=== PATIENT | male | born 1970 | race African-American/Black ===

== ENCOUNTER 2018-06-09 10:16 | Inpatient (IN) | payer BC ==
[2018-06-09] VITALS (7 sets, daily range): BP systolic 142–174; BP diastolic 83–108
[~2018-06-09] VITALS: Ht 167.6 cm; Wt 118.8 kg
--- NOTE | ~2018-06-09 | EKG ---
[place], [place] ELECTROCARDIOGRAM REPORT NAME: RICO PINO UNIT #: [id number] ROOM: 406 DOCTOR: VALERIA DRAFT REPORT BIRTHDATE: [birth year] [facility] Test Date: 2018-06-09 Test Time: 15:13:57 Pat Name: RICO PINO Department: Room: 406 1 Gender: M Rehab Technician: Josephine Desai : 1970 Requested By: MARISEL XIAO Order Number: [id number] Reading MD: Louie Alejandra MD Measurements Intervals [place] Rate: 79 P: 46 TX: 150 QRS: 44 QRSD: 106 T: 127 QT: 418 QTc: 480 Interpretive Statements Sinus rhythm Probable left atrial enlargement Abnormal R-wave progression, late transition LVH with secondary repolarization abnormality Anterior ST elevation, probably due to LVH No change from earlier ECG this date. Electronically Signed On 06-09-2018 18:49:14 PDT by Louie Alejandra MD CM:EKGRPT:ELECTROCARDIOGRAM REPORT [id number] [id number] MARISEL SHAW DRAFT REPORT MARISEL XIAO
--- NOTE | ~2018-06-09 | EKG ---
[place], [place] ELECTROCARDIOGRAM REPORT NAME: RICO PINO UNIT #: [id number] ROOM: 406 DOCTOR: VALERIA DRAFT REPORT BIRTHDATE: [birth year] [facility] Test Date: 2018-06-09 Test Time: 12:39:30 Pat Name: RICO PINO Department: Room: 406 Gender: M Iso Coordinator: Josephine Desai : 1970 Requested By: ANYI CUNHA Order Number: [id number] Reading MD: Louie Alejandra MD Measurements Intervals [place] Rate: 82 P: 49 TN: 148 QRS: 60 QRSD: 99 T: 85 QT: 376 QTc: 440 Interpretive Statements Sinus rhythm Probable left atrial enlargement Left ventricular hypertrophy Nonspecific T abnormalities, lateral leads No previous ECG available for comparison Electronically Signed On 06-09-2018 12:39:44 PDT by Louie Alejandra MD CM:EKGRPT:ELECTROCARDIOGRAM REPORT [id number] ANYI CUNHA EPIPHANY DRAFT REPORT ANIY CUNHA
--- NOTE | ~2018-06-09 | EKG ---
[place], [place] ELECTROCARDIOGRAM REPORT NAME: RICO PINO UNIT #: [id number] ROOM: 406 DOCTOR: EPIPHANY DRAFT REPORT BIRTHDATE: [birth year] [facility] Test Date: 2018-06-09 Test Time: 18:42:03 Pat Name: RICO PINO Department: 4E Room: 406 1 Gender: M Radio Repairer: Louie Trevino : 1970 Requested By: MARISEL XIAO Order Number: [id number] Reading MD: Louie Alejandra MD Measurements Intervals [place] Rate: 79 P: 46 ID: [id number] QRS: 53 QRSD: 102 T: 92 QT: 416 QTc: 477 Interpretive Statements Sinus rhythm Probable left atrial enlargement Left ventricular hypertrophy Nonspecific T abnormalities, lateral leads Compared to ECG 06/09/2018 12:39:30 No significant change Electronically Signed On 06-09-2018 18:50:23 PDT by Louie Alejandra MD CM:EKGRPT:ELECTROCARDIOGRAM REPORT [id number] 1850 MARISEL XIAO EPIPHANY DRAFT REPORT MARISEL XIAO
[2018-06-09 11:26] LABS: BILIRUBIN NEGATIVE (NEGATIVE); BLOOD TRACE-LYSED (NEGATIVE); CLARITY CLEAR (CLEAR); COLOR YELLOW (YELLOW); GLUCOSE NEGATIVE (NEGATIVE); KETONE NEGATIVE (NEGATIVE); LEUKO ESTERASE NEGATIVE (NEGATIVE); NITRITE NEGATIVE (NEGATIVE); SPECIFIC GRAVITY <= 1.005 (1.005-1.030); UROBILINOGEN 0.2 E.U./dl (0.2-1.0)
[2018-06-09 11:33] LABS: BASO % 0.3 % (0.0-1.0); EOS # 0.3 10*3/uL (0.0-0.4); EOS % 3.6 % (1.0-4.0); HEMOGLOBIN 14.6 g/dl (14.0-18.0); LYMPH # 1.4 10*3/uL (1.3-4.4); LYMPH % 19.1 % (27.0-41.0); MEAN CELL VOLUME 88.6 fl (80.0-94.0); MEAN CORPUSCULAR HGB 30.8 pg (27.0-31.0); MEAN CORPUSCULAR HGB CONC 34.8 g/dl (33.0-37.0); MEAN PLATELET VOLUME 10.5 fl (9.6-12.3); MONO # 0.7 10*3/uL (0.1-1.0); MONO % 9.4 % (3.0-9.0); NEUT # 4.8 10*3/uL (2.3-7.9); NEUT % 67.3 % (47.0-73.0); PLATELET COUNT AUTOMATED 165 10*3/uL (130-400); RED BLOOD COUNT 4.74 10*6/uL (4.50-5.90); RED CELL DISTRI WIDTH 13.2 % (0-14.5); WHITE BLOOD COUNT 7.2 10*3/uL (4.8-10.8)
[2018-06-09 11:35] LABS: BACTERIA TRACE; RBC 0-2 rbc/hpf (0-2)
[2018-06-09 11:51] LABS: ALBUMIN 4.6 gm/dl (3.1-4.5); ALKALINE PHOSPHATASE 61 U/L (45-117); BUN 8 mg/dl (7-24); CHLORIDE 103 mmol/L (98-107); CREATININE 1.04 mg/dL (0.70-1.30); LIPASE 141 U/L (73-393); POTASSIUM 3.5 mmol/L (3.5-5.1); SGOT/AST 62 IU/L (3-35); SGPT/ALT 57 U/L (12-78); SODIUM 135 mmol/L (136-145); TOTAL PROTEIN 8.6 gm/dL (6.4-8.2)
[2018-06-09] MEDS ORDERED: Tobrex Ophth S2.5 ML OPH (12:13)
[2018-06-09] MEDS ORDERED: LEXAPRO10 MG PO (15:24)
[2018-06-09] MEDS ORDERED: VENTOLIN 02.5 MG/3 M INH (15:24)
[2018-06-09] MEDS ORDERED: LOSARTAN-HCTZ1 EAC1 PO (15:25)
[2018-06-10] VITALS: BP 160/86
[2018-06-10 06:56] LABS: BASO % 0.5 % (0.0-1.0); EOS # 0.3 10*3/uL (0.0-0.4); EOS % 3.5 % (1.0-4.0); HEMATOCRIT 41.7 % (42.0-52.0); HEMOGLOBIN 14.1 g/dl (14.0-18.0); LYMPH # 1.7 10*3/uL (1.3-4.4); MEAN CELL VOLUME 88.5 fl (80.0-94.0); MEAN CORPUSCULAR HGB 29.9 pg (27.0-31.0); MEAN CORPUSCULAR HGB CONC 33.8 g/dl (33.0-37.0); MEAN PLATELET VOLUME 10.9 fl (9.6-12.3); MONO # 0.8 10*3/uL (0.1-1.0); MONO % 9.7 % (3.0-9.0); NEUT # 5.2 10*3/uL (2.3-7.9); NEUT % 64.9 % (47.0-73.0); PLATELET COUNT AUTOMATED 173 10*3/uL (130-400); RED BLOOD COUNT 4.71 10*6/uL (4.50-5.90)
[2018-06-10 07:22] LABS: ALBUMIN 4.6 gm/dl (3.1-4.5); BUN 8 mg/dl (7-24); CHLORIDE 100 mmol/L (98-107); CHOLESTEROL 172 mg/dL (<200); CREATININE 0.99 mg/dL (0.70-1.30); POTASSIUM 3.2 mmol/L (3.5-5.1); SGOT/AST 56 IU/L (3-35); SGPT/ALT 58 U/L (12-78); SODIUM 135 mmol/L (136-145); TRIGLYCERIDES 121 mg/dl (<150); VLDL CHOLESTEROL 24 mg/dL (6-40)
[2018-06-10 07:25] LABS: ACT PARTIAL THROMBO TIME 23.5 SECONDS (20.8-31.5)
[2018-06-10 07:29] LABS: ALKALINE PHOSPHATASE 61 U/L (45-117); FREE T4 1.12 ng/dl (0.76-1.46); HDL CHOLESTEROL 45 mg/dl (40-60); LDL CHOLESTEROL 103 mg/dL (9-159); PHOSPHOROUS 3.1 mg/dL (2.5-4.9); THYROID STIM HORMONE (HS) 0.284 uIU/ml (0.358-4.75); TOTAL PROTEIN 8.7 gm/dL (6.4-8.2)
[2018-06-10 08:00] VITALS: BP 142/80
[2018-06-10 08:58] LABS: VITAMIN D, 25-HYDROXY 11.9 ng/mL (30-100)
[2018-06-10 11:54] VITALS: BP 156/84
[2018-06-10 12:00] VITALS: BP 156/84
== END 2018-06-10 14:35 | disposition home or self-care (01) | DRG 313 ==
LOC: ED 10:16 → 4E 13:10 → EDHOLD 13:10 → 4E 13:36
PROVIDERS: Nurse Practitioner Family; Student in an Organized Health Care Education/Training Program
DX: R07.89 Other chest pain (principal); E87.1 Hypo-osmolality and hyponatremia; K21.9 Gastro-esophageal reflux disease without esophagitis; J44.9 Chronic obstructive pulmonary disease, unspecified; R31.9 Hematuria, unspecified; D86.9 Sarcoidosis, unspecified; I10 Essential (primary) hypertension; R74.0 Nonspecific elevation of levels of transaminase and lactic acid dehydrogenase [LDH]; F17.210 Nicotine dependence, cigarettes, uncomplicated; F41.9 Anxiety disorder, unspecified; E11.65 Type 2 diabetes mellitus with hyperglycemia; F12.10 Cannabis abuse, uncomplicated; J45.20 Mild intermittent asthma, uncomplicated; Y93.89 Activity, other specified; Z71.6 Tobacco abuse counseling; Z80.8 Family history of malignant neoplasm of other organs or systems; Z88.0 Allergy status to penicillin